=== PATIENT | female | born 1985 | race Caucasian/White ===

== ENCOUNTER 2022-09-02 14:49 | Emergency (ER) | payer MEDICAID ==
[~2022-09-02] VITALS: Ht 162.6 cm; Wt 70.0 kg
[2022-09-02 14:53] VITALS: BP 153/104
[2022-09-02 19:59] LABS: BASOPHILS % 0.2 % (0.0-2.0); EOSINOPHILS % 1.9 % (0.0-5.0); HEMATOCRIT. 40.2 % (36.0-48.0); HEMOGLOBIN. 13.6 g/dL (12.0-16.0); LYMPHOCYTES % 24.6 % (20.0-50.0); MEAN CORPUSCULAR HEMOGLOBIN 30.2 pg (28.0-32.0); MEAN CORPUSCULAR VOLUME 89.4 fL (81.0-99.0); MEAN PLATELET VOLUME 7.7 fl (7.4-10.4); MONOCYTES % 6.7 % (2.0-8.0); NEUTROPHILS % 66.6 % (40.0-76.0); PLATELET 306 x1000/uL (130-400); RED CELL DISTRIBUTION WIDTH 13.1 % (11.6-14.6)
[2022-09-02 20:30] LABS: CHLORIDE 106 mEq/L (98-107)
== END 2022-09-02 21:00 | disposition home or self-care (01) ==
LOC: ER 14:49
DX: O20.0 Threatened abortion (principal); Z3A.01 Less than 8 weeks gestation of pregnancy
CPT/HCPCS: 36415; 76801; 80053; 81025; 84702; 85025; 86850; 86900; 99284